=== PATIENT | male | born 1945 | race Caucasian/White ===

== ENCOUNTER 2016-09-13 20:16 | Inpatient (IN) | payer MEDICARE ==
[~2016-09-13] VITALS: Ht 177.8 cm; Wt 94.5 kg
[~2016-09-13 20:16] MED LIST: ACET-1757 PO; ALBU8.5H3 INH; AMLO5TAB2 PO; ASPI-515 PO; ASPI-650 PO; ASPI1CPM9 PO; BACL-19 PO; DIVA500T2 PO; DOXY100T PO; ENAL10TA PO; ENAL2.5T PO; ENAL20TA PO; FAMO20TA7 PO; FINA5TAB4 PO; GABA100C8 PO; GUAI600T53 PO; INHA1SPA INH; INSU100C SQ-INSULIN; INSU100C5 SQ-INSULIN; INSU100I28 SQ-INSULIN; INSU100V8 SQ; INSU300I SQ; LEVO500T33 PO; LIDOCAINE CREAM; LINA5TAB PO; LISI-170 PO; MAG355OR14 PO; METF10002 PO; OMEP-110 PO; OMEP10CA2 PO; PANT40TA3 PO; PANT40TA5 PO; PIOG15TA2 PO; PIOG15TA9 PO; PRED10TA14 PO; PRED20TA PO; SILD100T PO; SIMV20TA3 PO; SIMV40TA3 PO; SUCR1ORA11 PO; SUCR1TAB26 PO; SUMA25TA3 PO; TAMS0.4C2 PO; TRAJEO; TRAM50TA2 PO; [UNRECOGNIZED DRUG - CODE] SL
[2016-09-13 20:50] LABS: HEMOGLOBIN 16.1 g/dL (13.7-18.0)
[2016-09-13 20:59] LABS: ACETAMINOPHEN < 2 mcg/mL (10-30); BLOOD UREA NITROGEN 21 mg/dL (7-18)
[2016-09-13 21:06] LABS: DAU SCREEN DISCLAIMER
[2016-09-13] MEDS ORDERED: NITROGLYCERIN SINGLE TAB 0.4 MG SL ONE (23:06)
[2016-09-13] MEDS ORDERED: SODIUM CHLORIDE 0.9% 1,000 ML IV SCH (23:17)
[2016-09-13] MEDS ORDERED: ASPIRIN 81 MG TABLET CHEW PO SCH (23:20)
[2016-09-13] MEDS: NITROGLYCERIN 0.4 MG BOTTLE (25 TABS) SL PRN ×2 (23:20→23:25)
[2016-09-13] MEDS ORDERED: ASPIRIN 81 MG TABLET CHEW ONE (23:21)
[2016-09-13] MEDS ORDERED: ACETAMINOPHEN 325 MG TABLET PO PRN (23:30)
[2016-09-13] MEDS: INSULIN DETEMIR 100 UNITS/ML, PEN SQ-INSULIN SCH (23:30)
[2016-09-13] MEDS ORDERED: LABETALOL 5MG/ML, 20ML IV PRN (23:30)
[2016-09-13] MEDS ORDERED: POLYETHYLENE GLYCOL 17 GM PACKET PO PRN (23:30)
[2016-09-13] MEDS ORDERED: SUMATRIPTAN 25 MG TABLET PO PRN (23:30)
[2016-09-13] MEDS ORDERED: ONDANSETRON 2MG/ML, 2ML IVP PRN (23:30)
[2016-09-13] MEDS ORDERED: BISACODYL 10 MG SUPP PR PRN (23:30)
[2016-09-13] MEDS ORDERED: DOCUSATE 100 MG CAPSULE PO PRN (23:30)
[2016-09-13] MEDS ORDERED: TEMAZEPAM 15 MG CAPSULE PO PRN (23:30)
[2016-09-13] MEDS ORDERED: MORPHINE SULFATE 4 MG/ML, 1ML IVPush PRN (23:30)
[2016-09-13 23:51] LABS: IS PT STATUS REG ER OR PRE ER? YES
[2016-09-14] VITALS (8 sets, daily range): BP systolic 91–150; BP diastolic 55–80
[2016-09-14] MEDS ORDERED: ASPIRIN 81 MG TABLET CHEW PO ONE (00:58)
[2016-09-14] MEDS: ENOXAPARIN 40 MG/0.4 ML SQ SCH ×2 (01:17→22:19)
[2016-09-14 06:02] LABS: HEMOGLOBIN 14.6 g/dL (13.7-18.0)
[2016-09-14 06:38] LABS: BLOOD UREA NITROGEN 21 mg/dL (7-18)
[2016-09-14 06:39] LABS: IS PT STATUS REG ER OR PRE ER? NO
[2016-09-14] MEDS: INSULIN REGULAR 100 UNITS/ML, 3ML VIAL SQ-INSULIN SCH ×4 (07:17→22:09)
[2016-09-14] MEDS: ASPIRIN 325 MG TABLET EC PO SCH (09:20)
[2016-09-14] MEDS: TAMSULOSIN 0.4 MG CAP.ER.24H PO SCH (09:21)
[2016-09-14] MEDS: BACLOFEN 10 MG TABLET PO SCH (09:21)
[2016-09-14] MEDS: OMEPRAZOLE 20 MG CAPSULE.DR PO SCH ×2 (09:21→22:05)
[2016-09-14] MEDS: FINASTERIDE 5 MG TABLET PO SCH (09:21)
[2016-09-14] MEDS: DIVALPROEX 500 MG TABLET.DR PO SCH ×2 (09:22→22:14)
[2016-09-14] MEDS: PIOGLITAZONE 15 MG TABLET PO SCH (09:22)
[2016-09-14] MEDS: ENALAPRIL 20MG TABLET PO SCH (09:22)
[2016-09-14] MEDS: INSULIN DETEMIR 100 UNITS/ML, PEN SQ-INSULIN SCH ×2 (10:19→22:07)
[2016-09-14] MEDS: ISOSORBIDE MONONITRATE ER 30 MG TABLET PO SCH (10:20)
[2016-09-14] MEDS: ARIPIPRAZOLE 2 MG TABLET PO SCH (10:20)
[2016-09-14 11:22] LABS: IS PT STATUS REG ER OR PRE ER? YES
[2016-09-14] MEDS ORDERED: DEXTROSE 4 GM TAB.CHEW PO PRN (19:30)
[2016-09-14] MEDS ORDERED: DEXTROSE 50%, 50ML SYRINGE IVPush PRN (19:30)
[2016-09-14] MEDS ORDERED: GLUCAGON 1 MG IM PRN (19:30)
[2016-09-14] MEDS ORDERED: SODIUM CHLORIDE FLUSH 10ML SYR IVF SCH (21:00)
[2016-09-14] MEDS ORDERED: SIMVASTATIN 20 MG TABLET PO SCH (21:00)
[2016-09-15 07:22] VITALS: BP 97/59
[2016-09-15] MEDS: INSULIN REGULAR 100 UNITS/ML, 3ML VIAL SQ-INSULIN SCH ×2 (07:30→11:00)
[2016-09-15] MEDS: FINASTERIDE 5 MG TABLET PO SCH (08:00)
[2016-09-15] MEDS: PIOGLITAZONE 15 MG TABLET PO SCH (08:00)
[2016-09-15] MEDS: INSULIN DETEMIR 100 UNITS/ML, PEN SQ-INSULIN SCH (09:27)
[2016-09-15] MEDS: OMEPRAZOLE 20 MG CAPSULE.DR PO SCH (09:28)
[2016-09-15] MEDS: ASPIRIN 325 MG TABLET EC PO SCH (09:28)
[2016-09-15] MEDS: ISOSORBIDE MONONITRATE ER 30 MG TABLET PO SCH (09:28)
[2016-09-15] MEDS: TAMSULOSIN 0.4 MG CAP.ER.24H PO SCH (09:28)
[2016-09-15] MEDS: ARIPIPRAZOLE 2 MG TABLET PO SCH (09:28)
[2016-09-15] MEDS: BACLOFEN 10 MG TABLET PO SCH (09:29)
[2016-09-15] MEDS: ENALAPRIL 20MG TABLET PO SCH (09:29)
[2016-09-15] MEDS: DIVALPROEX 500 MG TABLET.DR PO SCH (09:29)
[2016-09-15] MEDS ORDERED: AZITHROMYCIN 500 MG TABLET PO SCH (13:00)
[2016-09-15] MEDS ORDERED: GUAIFENESIN 200 MG TABLET PO SCH (13:00)
[2016-09-16] MEDS ORDERED: ENALAPRIL 10 MG TABLET PO SCH (09:00)
== END 2016-09-15 15:45 | DRG 292 ==
LOC: ED 22:34 → EDIP 22:35 → SUATTDRO 22:54 → ED 22:54 → OBSVTOIN 23:17 → 5SO 09-14 00:51 → 3E 09-14 12:09
DX: I13.0 Hypertensive heart and chronic kidney disease with heart failure and stage 1 through stage 4 chronic kidney disease, or unspecified chronic kidney disease (principal); R45.851 Suicidal ideations; I50.42 Chronic combined systolic (congestive) and diastolic (congestive) heart failure; N17.9 Acute kidney failure, unspecified; R07.89 Other chest pain; Z79.4 Long term (current) use of insulin; N18.3 Chronic kidney disease, stage 3 (moderate); E11.22 Type 2 diabetes mellitus with diabetic chronic kidney disease; E78.5 Hyperlipidemia, unspecified; F43.10 Post-traumatic stress disorder, unspecified; I25.10 Atherosclerotic heart disease of native coronary artery without angina pectoris; J44.9 Chronic obstructive pulmonary disease, unspecified; K22.4 Dyskinesia of esophagus; K22.70 Barrett's esophagus without dysplasia; F41.9 Anxiety disorder, unspecified; N40.0 Benign prostatic hyperplasia without lower urinary tract symptoms; I48.0 Paroxysmal atrial fibrillation; G43.909 Migraine, unspecified, not intractable, without status migrainosus; G89.29 Other chronic pain; M54.9 Dorsalgia, unspecified; Z90.49 Acquired absence of other specified parts of digestive tract; Z82.0 Family history of epilepsy and other diseases of the nervous system; Z86.711 Personal history of pulmonary embolism; Z86.73 Personal history of transient ischemic attack (TIA), and cerebral infarction without residual deficits; Z83.3 Family history of diabetes mellitus; Z80.1 Family history of malignant neoplasm of trachea, bronchus and lung; E11.40 Type 2 diabetes mellitus with diabetic neuropathy, unspecified
CPT/HCPCS: 36415; 71010; 80048; 80307; 80329; 82040; 82962; 84484; 85025; 93005; 99285; J1650; J1815; G0378; G0480; J7030

== ENCOUNTER 2016-10-23 21:22 | Emergency (ER) | payer MEDICARE ==
[2016-10-23] MEDS ORDERED: SODIUM CHLORIDE FLUSH 10ML SYR IVF ONE (22:00)
[2016-10-23 22:17] LABS: BLOOD UREA NITROGEN 18 mg/dL (7-18)
[2016-10-23 22:23] LABS: IS PT STATUS REG ER OR PRE ER? YES
[2016-10-23 22:59] VITALS: BP 126/66
== END 2016-10-23 23:17 | disposition home or self-care (01) ==
LOC: ED 23:13
DX: E11.65 Type 2 diabetes mellitus with hyperglycemia (principal); J44.9 Chronic obstructive pulmonary disease, unspecified; K21.9 Gastro-esophageal reflux disease without esophagitis; E78.5 Hyperlipidemia, unspecified; I25.10 Atherosclerotic heart disease of native coronary artery without angina pectoris; I11.0 Hypertensive heart disease with heart failure; I50.9 Heart failure, unspecified; Z90.49 Acquired absence of other specified parts of digestive tract; Z88.6 Allergy status to analgesic agent
CPT/HCPCS: 36415; 80048; 82040; 82962; 84484; 85025; 93005; 99285

== ENCOUNTER 2016-11-04 12:58 | Inpatient (IN) | payer MEDICARE ==
[~2016-11-04] VITALS: Ht 152.4 cm; Wt 103.6 kg
[2016-11-04] MEDS ORDERED: ALBU8.5H3 IH (13:21)
[2016-11-04] MEDS ORDERED: HYDROcodone/APAP 5/325 TABLET ONE (13:29)
[2016-11-04] MEDS ORDERED: SODIUM CHLORIDE 0.9% 1,000ML IVBOLUS ONE (13:30)
[2016-11-04] MEDS ORDERED: HYDROcodone/APAP 5/325 TABLET PO ONE (13:30)
[2016-11-04 13:45] LABS: PH, VENOUS 7.427 pH (7.320-7.420)
[2016-11-04 13:58] LABS: ASPARTATE AMINO TRANSFERASE 21 U/L (15-37); BLOOD UREA NITROGEN 18 mg/dL (7-18)
[2016-11-04 16:52] VITALS: BP 138/72
[2016-11-04] MEDS ORDERED: DEXTROSE 4 GM TAB.CHEW PO PRN (17:30)
[2016-11-04] MEDS ORDERED: NITROGLYCERIN 0.4 MG/SPRAY SL PRN (17:30)
[2016-11-04] MEDS ORDERED: morphine SULFATE 10 MG/ML, 1ML IVPush PRN (17:30)
[2016-11-04] MEDS ORDERED: ONDANSETRON 2MG/ML, 2ML IVPush PRN (17:30)
[2016-11-04] MEDS ORDERED: GLUCAGON 1 MG IM PRN (17:30)
[2016-11-04] MEDS ORDERED: DEXTROSE 50%, 50ML SYRINGE IVPush PRN (17:30)
[2016-11-04] MEDS ORDERED: NITROGLYCERIN 0.4 MG BOTTLE (25 TABS) SL PRN (17:30)
[2016-11-04] MEDS ORDERED: ENOXAPARIN 40 MG/0.4 ML SQ SCH (17:30)
[2016-11-04 19:19] VITALS: BP 126/70
[2016-11-04] MEDS: SODIUM CHLORIDE FLUSH 10ML SYR IVF SCH (20:57)
[2016-11-04] MEDS: DIVALPROEX 500 MG TABLET.DR PO SCH (20:57)
[2016-11-04] MEDS ORDERED: SIMVASTATIN 20 MG TABLET PO SCH (21:00)
[2016-11-04] MEDS: INSULIN DETEMIR 100 UNITS/ML, PEN SQ-INSULIN SCH (21:04)
[2016-11-04 21:08] LABS: IS PT STATUS REG ER OR PRE ER? NO
[2016-11-04] MEDS: INSULIN ASPART 100 UNITS/ML, PEN SQ-INSULIN SCH (21:11)
[2016-11-04] MEDS ORDERED: ALBUTEROL/IPRATROPIUM 2.5MG/0.5MG, 3 ML NPPB PRN (21:30)
[2016-11-05 02:07] VITALS: BP 149/82
[2016-11-05] MEDS: INSULIN DETEMIR 100 UNITS/ML, PEN SQ-INSULIN SCH (05:10)
[2016-11-05 06:47] LABS: BLOOD UREA NITROGEN 14 mg/dL (7-18)
[2016-11-05 06:51] LABS: ASPARTATE AMINO TRANSFERASE 13 U/L (15-37)
[2016-11-05 06:57] LABS: IS PT STATUS REG ER OR PRE ER? NO
[2016-11-05] MEDS: INSULIN ASPART 100 UNITS/ML, PEN SQ-INSULIN SCH ×2 (07:00→13:06)
[2016-11-05 07:53] VITALS: BP 155/94
[2016-11-05] MEDS ORDERED: PIOGLITAZONE 15 MG TABLET PO SCH (09:00)
[2016-11-05] MEDS ORDERED: FINASTERIDE 5 MG TABLET PO SCH (09:00)
[2016-11-05] MEDS ORDERED: ENALAPRIL 10 MG TABLET PO SCH (09:00)
[2016-11-05] MEDS ORDERED: TAMSULOSIN 0.4 MG CAP.ER.24H PO SCH (09:00)
[2016-11-05] MEDS ORDERED: ASPIRIN 325 MG TABLET EC PO SCH (09:00)
[2016-11-05] MEDS ORDERED: REGADENOSON 0.4 MG/5 ML SYRINGE ONE (09:01)
[2016-11-05] MEDS: DIVALPROEX 500 MG TABLET.DR PO SCH (09:02)
[2016-11-05] MEDS: SODIUM CHLORIDE FLUSH 10ML SYR IVF SCH (09:04)
[2016-11-05 14:11] LABS: IS PT STATUS REG ER OR PRE ER? NO
[2016-11-05 14:47] VITALS: BP 120/71
== END 2016-11-05 18:49 | disposition home or self-care (01) | DRG 381 ==
LOC: ED 14:01 → EDIP 14:53 → SUATTDRO 15:47 → 5SO 16:19
PROVIDERS: ADMIT Internal Medicine; ATTEND Internal Medicine
DX: K22.70 Barrett's esophagus without dysplasia (principal); G45.9 Transient cerebral ischemic attack, unspecified; I13.0 Hypertensive heart and chronic kidney disease with heart failure and stage 1 through stage 4 chronic kidney disease, or unspecified chronic kidney disease; I50.42 Chronic combined systolic (congestive) and diastolic (congestive) heart failure; E11.21 Type 2 diabetes mellitus with diabetic nephropathy; E11.22 Type 2 diabetes mellitus with diabetic chronic kidney disease; E78.5 Hyperlipidemia, unspecified; F32.9 Major depressive disorder, single episode, unspecified; F43.10 Post-traumatic stress disorder, unspecified; G43.909 Migraine, unspecified, not intractable, without status migrainosus; I25.10 Atherosclerotic heart disease of native coronary artery without angina pectoris; J44.9 Chronic obstructive pulmonary disease, unspecified; N18.3 Chronic kidney disease, stage 3 (moderate); N40.0 Benign prostatic hyperplasia without lower urinary tract symptoms; Z80.1 Family history of malignant neoplasm of trachea, bronchus and lung; Z82.0 Family history of epilepsy and other diseases of the nervous system; Z83.3 Family history of diabetes mellitus; Z85.828 Personal history of other malignant neoplasm of skin; Z86.711 Personal history of pulmonary embolism; Z87.891 Personal history of nicotine dependence; Z88.8 Allergy status to other drugs, medicaments and biological substances; E11.40 Type 2 diabetes mellitus with diabetic neuropathy, unspecified; I48.0 Paroxysmal atrial fibrillation
CPT/HCPCS: 36415; 71010; 78452; 80053; 80061; 81003; 82010; 82803; 82962; 83036; 83735; 84100; 84443; 84484; 85025; 93005; 93017; 96360; J1650; J1815; J2785; A9502; C9898; J2270; J7030

== ENCOUNTER 2016-11-19 12:35 | Inpatient (IN) | payer MEDICARE ==
[~2016-11-19] VITALS: Ht 177.8 cm; Wt 96.8 kg
[~2016-11-19 12:35] MED LIST changes: +ALBU8.5H3 IH
[2016-11-19] MEDS ORDERED: SODIUM CHLORIDE FLUSH 10ML SYR IVF ONE (13:30)
[2016-11-19] MEDS ORDERED: SODIUM CHLORIDE 0.9% 1,000 ML IV ONE (13:30)
[2016-11-19] MEDS ORDERED: ONDANSETRON 2MG/ML, 2ML IVPush ONE (13:30)
[2016-11-19] MEDS ORDERED: HYDROmorphone 1 MG/ML, 1ML ONE ×2 (13:40→16:33)
[2016-11-19] MEDS ORDERED: ONDANSETRON 2MG/ML, 2ML ONE (13:40)
[2016-11-19] MEDS: HYDROmorphone 1 MG/ML, 1ML IVPush PRN ×2 (13:46→16:38)
[2016-11-19 14:06] LABS: ASPARTATE AMINO TRANSFERASE 22 U/L (15-37); BLOOD UREA NITROGEN 19 mg/dL (7-18)
[2016-11-19 14:25] LABS: IS PT STATUS REG ER OR PRE ER? YES
[2016-11-19] MEDS ORDERED: SODIUM CHLORIDE FLUSH 10ML SYR IVF PRN (16:00)
[2016-11-19] MEDS ORDERED: ASPIRIN 81 MG TABLET CHEW PO ONE (16:00)
[2016-11-19] MEDS ORDERED: PHARMACY MAY ADJ FOR RENAL FX MC PRN (16:30)
[2016-11-19] MEDS ORDERED: ONDANSETRON ODT 4 MG PO PRN (16:30)
[2016-11-19] MEDS ORDERED: ONDANSETRON 2MG/ML, 2ML IVPush PRN (16:30)
[2016-11-19] MEDS ORDERED: MORPHINE SULFATE 4 MG/ML, 1ML IVPush PRN (16:30)
[2016-11-19] MEDS ORDERED: ASPIRIN 81 MG TABLET CHEW ONE (16:34)
[2016-11-19] MEDS: INSULIN ASPART 100 UNITS/ML, PEN SQ-INSULIN SCH ×2 (17:30→21:57)
[2016-11-19 17:36] VITALS: BP 125/83
[2016-11-19] MEDS: SODIUM CHLORIDE 0.9% 1,000 ML IV SCH (18:03)
[2016-11-19] MEDS: ENOXAPARIN 40 MG/0.4 ML SQ SCH (18:13)
[2016-11-19 20:32] VITALS: BP 137/75
[2016-11-19] MEDS: INSULIN GLARGINE HUM REC ANLOG 35 UNIT SQ SCH (21:00)
[2016-11-19] MEDS: OMEPRAZOLE 20 MG CAPSULE.DR PO SCH (21:17)
[2016-11-19] MEDS: DIVALPROEX 500 MG TABLET.DR PO SCH (21:17)
[2016-11-19] MEDS: SIMVASTATIN 20 MG TABLET PO SCH (21:17)
[2016-11-20 02:58] VITALS: BP 106/67
[2016-11-20 06:00] LABS: ASPARTATE AMINO TRANSFERASE 18 U/L (15-37); BLOOD UREA NITROGEN 20 mg/dL (7-18)
[2016-11-20] MEDS: INSULIN ASPART 100 UNITS/ML, PEN SQ-INSULIN SCH ×4 (07:00→20:33)
[2016-11-20 08:26] VITALS: BP 110/73
[2016-11-20 08:30] VITALS: BP 139/82
[2016-11-20] MEDS: FINASTERIDE 5 MG TABLET PO SCH (08:36)
[2016-11-20] MEDS: TAMSULOSIN 0.4 MG CAP.ER.24H PO SCH (08:36)
[2016-11-20] MEDS: OMEPRAZOLE 20 MG CAPSULE.DR PO SCH ×2 (08:36→20:33)
[2016-11-20] MEDS: DIVALPROEX 500 MG TABLET.DR PO SCH ×2 (08:36→20:33)
[2016-11-20] MEDS: ASPIRIN 325 MG TABLET EC PO SCH (08:36)
[2016-11-20] MEDS: BACLOFEN 10 MG TABLET PO SCH (08:36)
[2016-11-20] MEDS: SODIUM CHLORIDE 0.9% 1,000 ML IV SCH (12:15)
[2016-11-20 12:48] VITALS: BP 104/66
[2016-11-20] MEDS: ENOXAPARIN 40 MG/0.4 ML SQ SCH (16:00)
[2016-11-20] MEDS: SIMVASTATIN 20 MG TABLET PO SCH (20:33)
[2016-11-20] MEDS: INSULIN GLARGINE HUM REC ANLOG 35 UNIT SQ SCH (20:33)
[2016-11-20 20:58] VITALS: BP 123/71
[2016-11-21] MEDS: SODIUM CHLORIDE 0.9% 1,000 ML IV SCH ×2 (00:19→14:54)
[2016-11-21 02:55] VITALS: BP 115/60
[2016-11-21 07:06] VITALS: BP 128/71
[2016-11-21 08:43] LABS: BLOOD UREA NITROGEN 16 mg/dL (7-18)
[2016-11-21] MEDS: INSULIN ASPART 100 UNITS/ML, PEN SQ-INSULIN SCH ×4 (08:56→20:29)
[2016-11-21] MEDS: BACLOFEN 10 MG TABLET PO SCH (08:57)
[2016-11-21] MEDS: TAMSULOSIN 0.4 MG CAP.ER.24H PO SCH (08:57)
[2016-11-21] MEDS: OMEPRAZOLE 20 MG CAPSULE.DR PO SCH ×2 (08:57→20:28)
[2016-11-21] MEDS: ASPIRIN 325 MG TABLET EC PO SCH (08:57)
[2016-11-21] MEDS: DIVALPROEX 500 MG TABLET.DR PO SCH ×2 (08:57→20:28)
[2016-11-21] MEDS: FINASTERIDE 5 MG TABLET PO SCH (08:57)
[2016-11-21 09:02] VITALS: BP_SYST 146; BP_SYST 149; BP_SYST 153; BP_DIAS 74; BP_DIAS 75; BP_DIAS 83
[2016-11-21 12:16] VITALS: BP 137/71
[2016-11-21] MEDS ORDERED: GADOBUTROL 10 MMOL/10 ML VIAL ONE (15:09)
[2016-11-21] MEDS: ENOXAPARIN 40 MG/0.4 ML SQ SCH (16:50)
[2016-11-21 18:38] VITALS: BP 132/72
[2016-11-21] MEDS: SIMVASTATIN 20 MG TABLET PO SCH (20:28)
[2016-11-21] MEDS: INSULIN GLARGINE HUM REC ANLOG 35 UNIT SQ SCH (20:28)
[2016-11-22 01:20] VITALS: BP 123/62
[2016-11-22] MEDS: SODIUM CHLORIDE 0.9% 1,000 ML IV SCH (03:07)
[2016-11-22] MEDS: INSULIN ASPART 100 UNITS/ML, PEN SQ-INSULIN SCH ×2 (07:00→11:14)
[2016-11-22 07:57] VITALS: BP 130/80
[2016-11-22] MEDS: DIVALPROEX 500 MG TABLET.DR PO SCH (08:19)
[2016-11-22] MEDS: ASPIRIN 325 MG TABLET EC PO SCH (08:19)
[2016-11-22] MEDS: FINASTERIDE 5 MG TABLET PO SCH (08:19)
[2016-11-22] MEDS: BACLOFEN 10 MG TABLET PO SCH (08:19)
[2016-11-22] MEDS: OMEPRAZOLE 20 MG CAPSULE.DR PO SCH (08:19)
[2016-11-22] MEDS: TAMSULOSIN 0.4 MG CAP.ER.24H PO SCH (08:19)
[2016-11-22] MEDS ORDERED: FINASTERIDE 5 MG TABLET PO SCH (21:00)
[2016-11-22] MEDS ORDERED: TAMSULOSIN 0.4 MG CAP.ER.24H PO SCH (21:00)
== END 2016-11-22 13:12 | disposition home or self-care (01) | DRG 69 ==
LOC: ED 15:49 → EDIP 16:42 → 4WST 17:03 → DCLOUNGE 11-22 12:43
DX: G45.9 Transient cerebral ischemic attack, unspecified (principal); E44.1 Mild protein-calorie malnutrition; I50.42 Chronic combined systolic (congestive) and diastolic (congestive) heart failure; I13.0 Hypertensive heart and chronic kidney disease with heart failure and stage 1 through stage 4 chronic kidney disease, or unspecified chronic kidney disease; H53.149 Visual discomfort, unspecified; N40.0 Benign prostatic hyperplasia without lower urinary tract symptoms; F32.9 Major depressive disorder, single episode, unspecified; E11.22 Type 2 diabetes mellitus with diabetic chronic kidney disease; E11.40 Type 2 diabetes mellitus with diabetic neuropathy, unspecified; E78.5 Hyperlipidemia, unspecified; F43.10 Post-traumatic stress disorder, unspecified; G43.909 Migraine, unspecified, not intractable, without status migrainosus; N18.3 Chronic kidney disease, stage 3 (moderate); I25.10 Atherosclerotic heart disease of native coronary artery without angina pectoris; R74.8 Abnormal levels of other serum enzymes; J32.9 Chronic sinusitis, unspecified; J44.9 Chronic obstructive pulmonary disease, unspecified; K22.70 Barrett's esophagus without dysplasia; Z79.4 Long term (current) use of insulin; Z86.711 Personal history of pulmonary embolism; Z87.891 Personal history of nicotine dependence; Z91.5 Personal history of self-harm; Z90.49 Acquired absence of other specified parts of digestive tract; Z79.82 Long term (current) use of aspirin; Z79.899 Other long term (current) drug therapy; Z68.30 Body mass index [BMI] 30.0-30.9, adult; Z88.8 Allergy status to other drugs, medicaments and biological substances
CPT/HCPCS: 36415; 70450; 70544; 70549; 70553; 71010; 80048; 80053; 80061; 82533; 82962; 84443; 84484; 85025; 93005; 93306; 96361; 96374; 96375; 96376; A9585; J1170; J1650; J1815; J2405; J7030

== ENCOUNTER 2017-01-02 09:52 | Inpatient (IN) | payer MEDICARE, MEDICAID ==
[~2017-01-02] VITALS: Ht 177.8 cm; Wt 107.0 kg
[~2017-01-02 09:52] MED LIST changes: +GABA-826 PO; -GABA100C8 PO
[2017-01-02] MEDS ORDERED: SODIUM CHLORIDE FLUSH 10ML SYR IVF ONE (10:30)
[2017-01-02 10:42] LABS: ASPARTATE AMINO TRANSFERASE 20 U/L (15-37); BLOOD UREA NITROGEN 14 mg/dL (7-18)
[2017-01-02 10:51] LABS: IS PT STATUS REG ER OR PRE ER? YES
[2017-01-02] MEDS ORDERED: ACETAMINOPHEN 325 MG TABLET ONE (10:52)
[2017-01-02] MEDS ORDERED: ACETAMINOPHEN 325 MG TABLET PO ONE (11:00)
[2017-01-02] MEDS ORDERED: CLOP75TA PO (11:09)
[2017-01-02] MEDS ORDERED: LINA5TAB PO (11:09)
[2017-01-02] MEDS ORDERED: PANT40TA5 PO (11:09)
[2017-01-02] MEDS ORDERED: ENAL20TA PO (11:09)
[2017-01-02] MEDS ORDERED: SODIUM CHLORIDE FLUSH 10ML SYR IVF PRN (11:30)
[2017-01-02 12:41] VITALS: BP 146/98
[2017-01-02] MEDS ORDERED: DEXTROSE 50%, 50ML SYRINGE IVPush PRN (15:30)
[2017-01-02] MEDS ORDERED: ENALAPRILAT 1.25 MG/ML, 2ML IVPush PRN (15:30)
[2017-01-02] MEDS ORDERED: DEXTROSE 4 GM TAB.CHEW PO PRN (15:30)
[2017-01-02] MEDS ORDERED: GLUCAGON 1 MG IM PRN (15:30)
[2017-01-02] MEDS ORDERED: LABETALOL 5MG/ML, 20ML IVPush PRN (15:30)
[2017-01-02] MEDS ORDERED: ONDANSETRON 2MG/ML, 2ML IVPush PRN (15:30)
[2017-01-02] MEDS ORDERED: TEMAZEPAM 15 MG CAPSULE PO PRN (15:30)
[2017-01-02] MEDS ORDERED: ACETAMINOPHEN 325 MG TABLET PO PRN (15:30)
[2017-01-02] MEDS: INSULIN ASPART 100 UNITS/ML, PEN SQ-INSULIN SCH ×2 (16:00→21:00)
[2017-01-02] MEDS: HEPARIN 5,000 UNITS/ML, 1ML SQ SCH (17:45)
[2017-01-02] MEDS: INSULIN GLARGINE HUM REC ANLOG 35 UNIT SQ SCH (21:00)
[2017-01-02] MEDS: SODIUM CHLORIDE FLUSH 10ML SYR IVF SCH (21:16)
[2017-01-02] MEDS: SIMVASTATIN 20 MG TABLET PO SCH (21:16)
[2017-01-02] MEDS: DIVALPROEX 500 MG TABLET.DR PO SCH (21:16)
[2017-01-02 21:17] VITALS: BP 141/80
[2017-01-02] MEDS: SUMATRIPTAN 25 MG TABLET PO PRN (23:30)
[2017-01-03] MEDS: HEPARIN 5,000 UNITS/ML, 1ML SQ SCH ×3 (01:45→17:54)
[2017-01-03 02:20] VITALS: BP 129/79
[2017-01-03 06:35] VITALS: BP 149/79
[2017-01-03] MEDS: INSULIN ASPART 100 UNITS/ML, PEN SQ-INSULIN SCH ×4 (07:00→17:50)
[2017-01-03] MEDS: PANTOPROZOLE 40MG TABLET PO SCH (08:21)
[2017-01-03] MEDS: CLOPIDOGREL 75 MG TABLET PO SCH (08:21)
[2017-01-03] MEDS: TAMSULOSIN 0.4 MG CAP.ER.24H PO SCH (08:21)
[2017-01-03] MEDS: BACLOFEN 10 MG TABLET PO SCH (08:21)
[2017-01-03] MEDS: DIVALPROEX 500 MG TABLET.DR PO SCH ×2 (08:21→21:01)
[2017-01-03] MEDS: SODIUM CHLORIDE FLUSH 10ML SYR IVF SCH ×2 (08:21→21:01)
[2017-01-03] MEDS: ENALAPRIL 20MG TABLET PO SCH (08:22)
[2017-01-03] MEDS: FLUTICASONE NASAL SPRAY 16GM NAS SCH ×2 (10:30→21:00)
[2017-01-03] MEDS: SODIUM CHLORIDE NASAL SPRAY 45ML BOTTLE NAS SCH ×2 (10:30→21:00)
[2017-01-03 12:08] VITALS: BP 131/79
[2017-01-03] MEDS: GUAIFENESIN 200 MG TABLET PO SCH ×3 (13:32→21:01)
[2017-01-03 19:48] VITALS: BP 116/68
[2017-01-03] MEDS: INSULIN GLARGINE HUM REC ANLOG 35 UNIT SQ SCH (21:00)
[2017-01-03] MEDS: SIMVASTATIN 20 MG TABLET PO SCH (21:00)
[2017-01-04 01:16] VITALS: BP 142/75
[2017-01-04] MEDS: HEPARIN 5,000 UNITS/ML, 1ML SQ SCH ×3 (01:22→16:00)
[2017-01-04] MEDS: GUAIFENESIN 200 MG TABLET PO SCH ×3 (05:42→16:34)
[2017-01-04] MEDS: SUMATRIPTAN 25 MG TABLET PO PRN (05:45)
[2017-01-04 06:46] VITALS: BP 128/76
[2017-01-04] MEDS: INSULIN ASPART 100 UNITS/ML, PEN SQ-INSULIN SCH ×3 (07:00→16:00)
[2017-01-04] MEDS: SODIUM CHLORIDE NASAL SPRAY 45ML BOTTLE NAS SCH (08:54)
[2017-01-04] MEDS: FLUTICASONE NASAL SPRAY 16GM NAS SCH (08:54)
[2017-01-04] MEDS: BACLOFEN 10 MG TABLET PO SCH (08:55)
[2017-01-04] MEDS: PANTOPROZOLE 40MG TABLET PO SCH (08:55)
[2017-01-04] MEDS: DIVALPROEX 500 MG TABLET.DR PO SCH (08:55)
[2017-01-04] MEDS: ENALAPRIL 20MG TABLET PO SCH (08:55)
[2017-01-04] MEDS: CLOPIDOGREL 75 MG TABLET PO SCH (08:55)
[2017-01-04] MEDS: TAMSULOSIN 0.4 MG CAP.ER.24H PO SCH (08:55)
[2017-01-04] MEDS: SODIUM CHLORIDE FLUSH 10ML SYR IVF SCH (08:56)
[2017-01-04 13:28] VITALS: BP 128/77
[2017-01-04] MEDS ORDERED: FLUT16SP NAS (13:54)
[2017-01-04] MEDS ORDERED: SODI44SP NAS (13:54)
== END 2017-01-04 17:15 | disposition home health service (06) | DRG 103 ==
LOC: ED 10:33 → EDIP 11:24 → INTOOBSV 11:24 → 4EST 12:25 → OBSVTOIN 01-03 10:38
PROVIDERS: ADMIT Hospitalist; ATTEND Hospitalist
DX: G43.109 Migraine with aura, not intractable, without status migrainosus (principal); I13.0 Hypertensive heart and chronic kidney disease with heart failure and stage 1 through stage 4 chronic kidney disease, or unspecified chronic kidney disease; J98.11 Atelectasis; R47.01 Aphasia; G81.94 Hemiplegia, unspecified affecting left nondominant side; E11.22 Type 2 diabetes mellitus with diabetic chronic kidney disease; E78.5 Hyperlipidemia, unspecified; F41.9 Anxiety disorder, unspecified; I25.10 Atherosclerotic heart disease of native coronary artery without angina pectoris; I50.9 Heart failure, unspecified; J44.9 Chronic obstructive pulmonary disease, unspecified; K21.9 Gastro-esophageal reflux disease without esophagitis; N18.3 Chronic kidney disease, stage 3 (moderate); N40.0 Benign prostatic hyperplasia without lower urinary tract symptoms; F32.9 Major depressive disorder, single episode, unspecified; E11.40 Type 2 diabetes mellitus with diabetic neuropathy, unspecified; R47.1 Dysarthria and anarthria; Z79.4 Long term (current) use of insulin; Z86.711 Personal history of pulmonary embolism; Z86.73 Personal history of transient ischemic attack (TIA), and cerebral infarction without residual deficits; Z92.82 Status post administration of tPA (rtPA) in a different facility within the last 24 hours prior to admission to current facility
CPT/HCPCS: 36415; 70450; 70551; 71010; 71020; 80053; 81003; 82962; 83735; 84100; 84484; 85025; 85610; 85730; 93005; 99285; G0378; J1644; J1815

== ENCOUNTER 2017-03-11 21:23 | Emergency (ER) | payer MEDICARE, MEDICAID ==
[~2017-03-11] VITALS: Ht 175.3 cm; Wt 118.5 kg
[~2017-03-11 21:23] MED LIST changes: -ALBU8.5H3 IH; -ALBU8.5H3 INH; +ALBU8.5H8 IH; +ALBU8.5H8 INH; +ASPI325T17 PO; +CLOP75TA PO; +DABI75CA3 PO; +FLUT16SP NAS; +GABA300C10 PO; -GUAI600T53 PO; +GUAI600T80 PO; +HYDR-3240 PO; -LEVO500T33 PO; +LEVO500T47 PO; +METH4TAB2 PO; +MIRT15TA6 PO; +PIOG15TA22 PO; -PIOG15TA9 PO; +SODI44SP NAS; -SUCR1TAB26 PO; +SUCR1TAB33 PO
[2017-03-11] MEDS ORDERED: ALBUTEROL/IPRATROPIUM 2.5MG/0.5MG, 3 ML NPPB ONE (22:00)
[2017-03-11] MEDS ORDERED: ALBUTEROL/IPRATROPIUM 2.5MG/0.5MG, 3 ML ONE (22:10)
[2017-03-11 22:21] LABS: BLOOD UREA NITROGEN 13 mg/dL (7-18)
[2017-03-11 22:40] LABS: HEMATOCRIT 45.9 % (39.2-51.8); HEMOGLOBIN 15.5 g/dL (13.7-18.0); WHITE BLOOD COUNT 6.1 x10^3/uL (3.4-10)
[2017-03-11] MEDS ORDERED: DEXAMETHASONE 4 MG TABLET ONE (23:28)
[2017-03-11] MEDS ORDERED: DEXAMETHASONE 4 MG/ML, 1ML IVPush ONE (23:30)
[2017-03-11] MEDS ORDERED: DEXAMETHASONE 4 MG/ML, 5ML ONE (23:33)
[2017-03-12 00:03] VITALS: BP 100/51
== END 2017-03-12 00:05 | disposition home or self-care (01) ==
LOC: ED 22:24
DX: J44.1 Chronic obstructive pulmonary disease with (acute) exacerbation (principal); I11.0 Hypertensive heart disease with heart failure; I50.9 Heart failure, unspecified; E11.65 Type 2 diabetes mellitus with hyperglycemia; I25.10 Atherosclerotic heart disease of native coronary artery without angina pectoris; Z86.73 Personal history of transient ischemic attack (TIA), and cerebral infarction without residual deficits; Z86.711 Personal history of pulmonary embolism; Z90.49 Acquired absence of other specified parts of digestive tract
CPT/HCPCS: 36415; 71010; 80048; 82040; 85025; 93005; 96374; 99285; J1100

== ENCOUNTER 2018-04-10 15:11 | Emergency (ER) | payer MEDICAID, MEDICARE ==
[~2018-04-10] VITALS: Ht 177.8 cm; Wt 103.6 kg
[~2018-04-10 15:11] MED LIST changes: +ACET-1600 PO; -AMLO5TAB2 PO; +AMLO5TAB7 PO; +CLOP75TA52 PO; +IPRA3AMP30 INH; +METO25TA91 PO; -PIOG15TA2 PO; +PIOG15TA66 PO; +TAMS-11 PO
[2018-04-10] MEDS ORDERED: SODIUM CHLORIDE FLUSH 10ML SYR IVF ONE (16:00)
[2018-04-10] MEDS ORDERED: ONDANSETRON 2MG/ML, 2ML IVPush ONE (16:00)
[2018-04-10] MEDS ORDERED: ACETAMINOPHEN 325 MG TABLET PO ONE (16:00)
[2018-04-10 16:03] LABS: BASOPHILS # (AUTO) 0.01 x10^3/uL (0-0.1); BASOPHILS % (AUTO) 0 % (0-1); EOSINOPHILS # (AUTO) 0.13 x10^3/uL (0-0.4); EOSINOPHILS % (AUTO) 2 % (1-7); LYMPHOCYTES # (AUTO) 2.09 x10^3/uL (1-3.4); LYMPHOCYTES % (AUTO) 27 % (22-44); MD NO; MEAN CORPUSCULAR HEMOGLOBIN 31.5 pg (27.5-34.5); MEAN CORPUSCULAR HGB CONC 34.2 g/dL (33.2-36.2); MEAN PLATELET VOLUME 9.7 fL (7.4-10.4); MONOCYTES # (AUTO) 0.49 x10^3/uL (0.2-0.8); MONOCYTES % (AUTO) 6 % (2-9); NEUTROPHILS # (AUTO) 4.91 x10^3/uL (1.8-6.8); NEUTROPHILS % (AUTO) 64 % (42-75); PLATELET COUNT 153 x10^3/uL (130-400); RED BLOOD COUNT 5.02 x10^6/uL (4.38-5.82); RED CELL DISTRIBUTION WIDTH 14.4 % (9.4-14.8)
[2018-04-10 16:14] LABS: PROTHROMBIN TIME 10.3 Seconds (9.6-11.5)
[2018-04-10 16:15] LABS: ALANINE AMINOTRANSFERASE 20 U/L (12-78); ALBUMIN 3.5 g/dL (3.4-5.0); ANION GAP 8 mmol/L (5-15); CALCIUM 8.7 mg/dL (8.5-10.1); CHLORIDE 109 mmol/L (98-107); CREATININE 1.46 mg/dL (0.7-1.3)
[2018-04-10] MEDS ORDERED: ONDANSETRON 2MG/ML, 2ML ONE (16:18)
[2018-04-10] MEDS ORDERED: ACETAMINOPHEN 325 MG TABLET ONE (16:18)
[2018-04-10 16:19] LABS: ALKALINE PHOSPHATASE 135 U/L (45-117); BILIRUBIN,TOTAL 0.9 mg/dL (0.2-1.0); TOTAL PROTEIN 7.2 g/dL (6.4-8.2); TROPONIN I < 0.015 ng/mL (0.000-0.045)
[2018-04-10 20:08] VITALS: BP 137/66
== END 2018-04-10 20:13 | disposition home or self-care (01) ==
LOC: ED 17:45
DX: G43.109 Migraine with aura, not intractable, without status migrainosus (principal); R07.2 Precordial pain; E78.5 Hyperlipidemia, unspecified; E11.9 Type 2 diabetes mellitus without complications; J44.9 Chronic obstructive pulmonary disease, unspecified; I25.2 Old myocardial infarction; I11.0 Hypertensive heart disease with heart failure; I50.9 Heart failure, unspecified; F41.9 Anxiety disorder, unspecified; G62.9 Polyneuropathy, unspecified; Z86.73 Personal history of transient ischemic attack (TIA), and cerebral infarction without residual deficits; Z90.49 Acquired absence of other specified parts of digestive tract; Z90.89 Acquired absence of other organs
CPT/HCPCS: 36415; 71045; 80053; 84484; 85025; 85610; 85730; 93005; 96374; 99285; J2405

== ENCOUNTER 2018-05-31 15:48 | Observation (INO) | payer MEDICAID, OTHER ==
[~2018-05-31] VITALS: Ht 177.8 cm; Wt 103.5 kg
[~2018-05-31 15:48] MED LIST changes: +AMLO-150 PO; -AMLO5TAB7 PO
[2018-05-31 17:02] LABS: BASOPHILS # (AUTO) 0.04 x10^3/uL (0-0.1); BASOPHILS % (AUTO) 1 % (0-1); EOSINOPHILS # (AUTO) 0.15 x10^3/uL (0-0.4); EOSINOPHILS % (AUTO) 2 % (1-7); LYMPHOCYTES # (AUTO) 1.78 x10^3/uL (1-3.4); LYMPHOCYTES % (AUTO) 24 % (22-44); MD NO; MEAN CORPUSCULAR HEMOGLOBIN 31.5 pg (27.5-34.5); MEAN CORPUSCULAR HGB CONC 34.1 g/dL (33.2-36.2); MEAN CORPUSCULAR VOLUME 92.6 fL (81-97); MEAN PLATELET VOLUME 9.9 fL (7.4-10.4); MONOCYTES # (AUTO) 0.34 x10^3/uL (0.2-0.8); MONOCYTES % (AUTO) 5 % (2-9); NEUTROPHILS # (AUTO) 5.24 x10^3/uL (1.8-6.8); NEUTROPHILS % (AUTO) 69 % (42-75); PLATELET COUNT 163 x10^3/uL (130-400); RED BLOOD COUNT 4.73 x10^6/uL (4.38-5.82); RED CELL DISTRIBUTION WIDTH 13.6 % (9.4-14.8)
[2018-05-31 17:10] LABS: INTERNATIONAL NORMALIZED RATIO 0.98 (0.93-1.1); PROTHROMBIN TIME 10.4 Seconds (9.6-11.5)
[2018-05-31 17:13] LABS: ALANINE AMINOTRANSFERASE 24 U/L (12-78); ALBUMIN 3.4 g/dL (3.4-5.0); ANION GAP 9 mmol/L (5-15); CALCIUM 8.6 mg/dL (8.5-10.1); CHLORIDE 111 mmol/L (98-107)
[2018-05-31 17:18] LABS: ALKALINE PHOSPHATASE 142 U/L (45-117); BILIRUBIN,TOTAL 0.4 mg/dL (0.2-1.0); CREATININE 1.45 mg/dL (0.7-1.3); TOTAL PROTEIN 6.7 g/dL (6.4-8.2); TROPONIN I < 0.015 ng/mL (0.000-0.045)
[2018-05-31] MEDS ORDERED: NITROGLYCERIN SINGLE TAB 0.4 MG SL ONE (18:15)
[2018-05-31] MEDS: NITROGLYCERIN SINGLE TAB 0.4 MG SL PRN ×2 (18:18→18:33)
[2018-05-31] MEDS ORDERED: ASPIRIN 81 MG TABLET CHEW ONE (18:56)
[2018-05-31] MEDS ORDERED: ASPIRIN 325 MG TABLET PO ONE (19:00)
[2018-05-31] MEDS ORDERED: ASPIRIN 81 MG TABLET CHEW PO ONE (19:00)
[2018-05-31 20:26] VITALS: BP 147/85
[2018-05-31] MEDS ORDERED: ACETAMINOPHEN 325 MG TABLET PO PRN (21:00)
[2018-05-31] MEDS ORDERED: INSULIN GLARGINE 100 UNITS/ML, PEN SQ-INSULIN SCH (21:00)
[2018-05-31] MEDS ORDERED: ONDANSETRON ODT 4 MG PO PRN (21:00)
[2018-05-31] MEDS ORDERED: DOCUSATE 100 MG CAPSULE PO PRN (21:00)
[2018-05-31] MEDS ORDERED: SIMVASTATIN 20 MG TABLET PO SCH (21:00)
[2018-05-31] MEDS ORDERED: hydrALAzine 20 MG/ML, 1ML IVPush PRN (21:00)
[2018-05-31] MEDS ORDERED: LIDODERM 5% PATCH TD PRN (21:00)
[2018-05-31] MEDS: GABAPENTIN 300 MG CAPSULE PO SCH (22:15)
[2018-05-31] MEDS: BACLOFEN 10 MG TABLET PO SCH (22:16)
[2018-06-01 00:11] LABS: TROPONIN I < 0.015 ng/mL (0.000-0.045)
[2018-06-01 02:03] VITALS: BP 135/79
[2018-06-01 05:10] LABS: ANION GAP 9 mmol/L (5-15); CALCIUM 8.4 mg/dL (8.5-10.1); CHLORIDE 111 mmol/L (98-107)
[2018-06-01 05:14] LABS: BASOPHILS # (AUTO) 0.04 x10^3/uL (0-0.1); BASOPHILS % (AUTO) 1 % (0-1); EOSINOPHILS # (AUTO) 0.25 x10^3/uL (0-0.4); EOSINOPHILS % (AUTO) 4 % (1-7); LYMPHOCYTES # (AUTO) 2.74 x10^3/uL (1-3.4); LYMPHOCYTES % (AUTO) 39 % (22-44); MD NO; MEAN CORPUSCULAR HEMOGLOBIN 31.9 pg (27.5-34.5); MEAN CORPUSCULAR HGB CONC 34.3 g/dL (33.2-36.2); MEAN PLATELET VOLUME 9.9 fL (7.4-10.4); MONOCYTES # (AUTO) 0.43 x10^3/uL (0.2-0.8); MONOCYTES % (AUTO) 6 % (2-9); NEUTROPHILS # (AUTO) 3.53 x10^3/uL (1.8-6.8); NEUTROPHILS % (AUTO) 51 % (42-75); PLATELET COUNT 135 x10^3/uL (130-400); RED BLOOD COUNT 4.45 x10^6/uL (4.38-5.82); RED CELL DISTRIBUTION WIDTH 13.5 % (9.4-14.8)
[2018-06-01 05:27] LABS: TROPONIN I < 0.015 ng/mL (0.000-0.045)
[2018-06-01 05:43] VITALS: BP 139/82
[2018-06-01] MEDS ORDERED: METOPROLOL SUCCINATE 25 MG TAB.ER.24H PO SCH (06:00)
[2018-06-01] MEDS ORDERED: REGADENOSON 0.4 MG/5 ML SYRINGE ONE (08:58)
[2018-06-01 09:00] VITALS: BP 136/80
[2018-06-01] MEDS ORDERED: ASPIRIN 81 MG TABLET CHEW PO/NG SCH (09:00)
[2018-06-01] MEDS ORDERED: DABIGATRAN 75 MG CAPSULE PO SCH (09:00)
[2018-06-01] MEDS ORDERED: PANTOPROZOLE 40MG TABLET PO SCH (09:00)
[2018-06-01] MEDS ORDERED: DIVALPROEX 500 MG TABLET.DR PO SCH (09:00)
[2018-06-01] MEDS ORDERED: LINAGLIPTIN 5 MG TAB PO SCH (09:00)
[2018-06-01] MEDS ORDERED: CLOPIDOGREL 75 MG TABLET PO SCH (09:00)
[2018-06-01] MEDS ORDERED: ENALAPRIL 20MG TABLET PO SCH (09:00)
[2018-06-01] MEDS: GABAPENTIN 300 MG CAPSULE PO SCH (11:29)
[2018-06-01] MEDS: BACLOFEN 10 MG TABLET PO SCH (11:29)
[2018-06-01 13:52] VITALS: BP 145/78
== END 2018-06-01 16:00 | disposition home or self-care (01) ==
LOC: ED 17:21 → INTOOBSV 18:05 → EDIP 18:05 → 5SO 20:11
PROVIDERS: ADMIT Internal Medicine; ATTEND Family Medicine
DX: I20.0 Unstable angina (principal); R42 Dizziness and giddiness; I50.32 Chronic diastolic (congestive) heart failure; E78.5 Hyperlipidemia, unspecified; F43.10 Post-traumatic stress disorder, unspecified; I11.0 Hypertensive heart disease with heart failure; I25.2 Old myocardial infarction; F41.1 Generalized anxiety disorder; K21.9 Gastro-esophageal reflux disease without esophagitis; N40.0 Benign prostatic hyperplasia without lower urinary tract symptoms; J44.9 Chronic obstructive pulmonary disease, unspecified; E11.65 Type 2 diabetes mellitus with hyperglycemia; E11.21 Type 2 diabetes mellitus with diabetic nephropathy; G43.909 Migraine, unspecified, not intractable, without status migrainosus; F32.9 Major depressive disorder, single episode, unspecified; Z80.1 Family history of malignant neoplasm of trachea, bronchus and lung; Z82.0 Family history of epilepsy and other diseases of the nervous system; Z85.828 Personal history of other malignant neoplasm of skin; Z83.3 Family history of diabetes mellitus; Z86.711 Personal history of pulmonary embolism; Z95.0 Presence of cardiac pacemaker
CPT/HCPCS: 36415; 70450; 71045; 78452; 80048; 80053; 82962; 83880; 84484; 85025; 85610; 93005; 93017; 93308; 93321; 93325; 96372; 99285; A9502; C9898; G0378; J1815; J2785

== ENCOUNTER 2018-06-29 13:50 | Emergency (ER) | payer MEDICAID, OTHER ==
[~2018-06-29] VITALS: Ht 177.8 cm; Wt 102.0 kg
--- NOTE | 2018-06-29 14:06 | NUR ---
Pt presents for dizziness and fall. Pt states he was standing looking at window, had sudden onset vertigo, fell down and hit shoulders and head on floor. Pt states BUCK 8/10 and bilateral shoulder pain. Pt has hx of TIA, CVA, DM, HTN. BG 161 by EMS. VSS.
[2018-06-29] MEDS ORDERED: MECLIZINE CHEWABLE 25 MG TAB ONE (14:09)
[2018-06-29 14:30] LABS: BASOPHILS # (AUTO) 0.02 x10^3/uL (0-0.1); BASOPHILS % (AUTO) 0 % (0-1); EOSINOPHILS # (AUTO) 0.11 x10^3/uL (0-0.4); EOSINOPHILS % (AUTO) 2 % (1-7); LYMPHOCYTES # (AUTO) 0.93 x10^3/uL (1-3.4); LYMPHOCYTES % (AUTO) 13 % (22-44); MD NO; MEAN CORPUSCULAR HEMOGLOBIN 30.9 pg (27.5-34.5); MEAN CORPUSCULAR HGB CONC 33.1 g/dL (33.2-36.2); MEAN CORPUSCULAR VOLUME 93.3 fL (81-97); MEAN PLATELET VOLUME 9.8 fL (7.4-10.4); MONOCYTES # (AUTO) 0.46 x10^3/uL (0.2-0.8); MONOCYTES % (AUTO) 7 % (2-9); NEUTROPHILS # (AUTO) 5.49 x10^3/uL (1.8-6.8); NEUTROPHILS % (AUTO) 78 % (42-75); PLATELET COUNT 136 x10^3/uL (130-400); RED BLOOD COUNT 4.76 x10^6/uL (4.38-5.82); RED CELL DISTRIBUTION WIDTH 13.4 % (9.4-14.8)
[2018-06-29] MEDS ORDERED: MECLIZINE CHEWABLE 25 MG TAB PO ONE (14:30)
[2018-06-29 14:34] LABS: INTERNATIONAL NORMALIZED RATIO 1.06 (0.93-1.1); PROTHROMBIN TIME 11.2 Seconds (9.6-11.5)
[2018-06-29 14:36] LABS: ALBUMIN 3.3 g/dL (3.4-5.0); ANION GAP 7 mmol/L (5-15); CALCIUM 8.2 mg/dL (8.5-10.1); CHLORIDE 104 mmol/L (98-107); CREATININE 1.55 mg/dL (0.7-1.3)
--- NOTE | 2018-06-29 14:41 | NUR ---
TASK RN: PT VERBALIZES HIS DIZZINESS HAS DECREASED FROM 8/10 TO 5/10.
[2018-06-29 14:50] LABS: CULTURE INDICATED? NO; MICROSCOPIC NOT IND
[2018-06-29 15:38] VITALS: BP 123/78
== END 2018-06-29 16:09 | disposition home or self-care (01) ==
LOC: ED 13:56
DX: R42 Dizziness and giddiness (principal); I10 Essential (primary) hypertension; E11.9 Type 2 diabetes mellitus without complications; R51 Headache
CPT/HCPCS: 36415; 70450; 80048; 81003; 82040; 85025; 85610; 85730; 93005; 99284

== ENCOUNTER 2018-10-05 13:45 | Emergency (ER) | payer OTHER ==
[~2018-10-05] VITALS: Ht 177.8 cm; Wt 102.0 kg
[~2018-10-05 13:45] MED LIST changes: +APIX5TAB PO; +HYDR25CA94 PO; +INSU100I13 SQ-INSULIN; -MIRT15TA6 PO; +MIRT15TA94 PO; +PIOG15TA4 PO
[2018-10-05] MEDS ORDERED: SODIUM CHLORIDE FLUSH 10ML SYR IVF ONE (14:00)
[2018-10-05] MEDS ORDERED: DIPHENHYDRAMINE 50 MG/ML, 1ML IVPush ONE (14:00)
[2018-10-05] MEDS ORDERED: METOCLOPRAMIDE 5 MG/ML, 2ML IVPush ONE (14:00)
[2018-10-05 14:19] LABS: BASOPHILS # (AUTO) 0.06 x10^3/uL (0-0.1); BASOPHILS % (AUTO) 1 % (0-1); EOSINOPHILS # (AUTO) 0.21 x10^3/uL (0-0.4); EOSINOPHILS % (AUTO) 3 % (1-7); LYMPHOCYTES # (AUTO) 2.09 x10^3/uL (1-3.4); LYMPHOCYTES % (AUTO) 30 % (22-44); MD NO; MEAN CORPUSCULAR HEMOGLOBIN 30.8 pg (27.5-34.5); MEAN CORPUSCULAR HGB CONC 33.5 g/dL (33.2-36.2); MEAN CORPUSCULAR VOLUME 91.8 fL (81-97); MONOCYTES # (AUTO) 0.44 x10^3/uL (0.2-0.8); MONOCYTES % (AUTO) 6 % (2-9); NEUTROPHILS # (AUTO) 4.28 x10^3/uL (1.8-6.8); NEUTROPHILS % (AUTO) 61 % (42-75); PLATELET COUNT 165 x10^3/uL (130-400); RED BLOOD COUNT 4.94 x10^6/uL (4.38-5.82); RED CELL DISTRIBUTION WIDTH 13.9 % (9.4-14.8)
[2018-10-05 14:30] LABS: ALBUMIN 3.5 g/dL (3.4-5.0); ANION GAP 4 mmol/L (5-15); CALCIUM 8.4 mg/dL (8.5-10.1); CHLORIDE 112 mmol/L (98-107); CREATININE 1.27 mg/dL (0.7-1.3)
[2018-10-05] MEDS ORDERED: DIPHENHYDRAMINE 50 MG/ML, 1ML ONE (14:41)
[2018-10-05] MEDS ORDERED: METOCLOPRAMIDE 5 MG/ML, 2ML ONE (14:41)
--- NOTE | 2018-10-05 14:48 | NUR ---
STATES BUCK, PHOTOPHOBIA, AURA EARLIER. MEDICATED FOR SAME
[2018-10-05 14:49] VITALS: BP 153/82
--- NOTE | 2018-10-05 15:39 | NUR ---
PT STATES BUCK IMPROVED, 5/10 SINCE MEDICATED.
== END 2018-10-05 15:42 | disposition home or self-care (01) ==
LOC: ED 14:02
DX: G43.111 Migraine with aura, intractable, with status migrainosus (principal); I10 Essential (primary) hypertension; E78.5 Hyperlipidemia, unspecified; I25.10 Atherosclerotic heart disease of native coronary artery without angina pectoris; I11.0 Hypertensive heart disease with heart failure; I50.9 Heart failure, unspecified; I25.2 Old myocardial infarction; Z86.73 Personal history of transient ischemic attack (TIA), and cerebral infarction without residual deficits; Z95.0 Presence of cardiac pacemaker; Z90.49 Acquired absence of other specified parts of digestive tract; Z72.9 Problem related to lifestyle, unspecified
CPT/HCPCS: 36415; 71045; 80048; 82040; 85025; 93005; 96374; 96375; 99284; J1200; J2765

== ENCOUNTER 2018-11-25 11:25 | Inpatient (IN) | payer OTHER ==
[~2018-11-25] VITALS: Ht 177.8 cm; Wt 105.1 kg
[~2018-11-25 11:25] MED LIST changes: -FLUT16SP NAS; +FLUT16SP24 NAS; +[UNRECOGNIZED DRUG - CODE] SL; -[UNRECOGNIZED DRUG - CODE] SL
[2018-11-25] MEDS ORDERED: ONDANSETRON 2MG/ML, 2ML IVPush ONE (12:00)
[2018-11-25] MEDS ORDERED: SODIUM CHLORIDE FLUSH 10ML SYR IVF ONE (12:00)
--- NOTE | 2018-11-25 12:07 | NUR ---
PATIETN TO ABD X-RAY
[2018-11-25] MEDS ORDERED: ONDANSETRON 2MG/ML, 2ML ONE (12:09)
--- NOTE | 2018-11-25 12:16 | NUR ---
PATIENT BACK FROM [facility], MEDICATED. GIVNE URINAL FOR UA SAMPLE
[2018-11-25 12:42] LABS: MD NO; MEAN CORPUSCULAR HEMOGLOBIN 31.1 pg (27.5-34.5); RED BLOOD COUNT 5.48 x10^6/uL (4.38-5.82)
[2018-11-25 12:54] LABS: ALBUMIN 3.6 g/dL (3.4-5.0); ANION GAP 6 mmol/L (5-15); CALCIUM 9.3 mg/dL (8.5-10.1); CHLORIDE 109 mmol/L (98-107)
[2018-11-25 13:00] LABS: ALANINE AMINOTRANSFERASE 22 U/L (12-78); ALKALINE PHOSPHATASE 140 U/L (45-117); BILIRUBIN,TOTAL 0.9 mg/dL (0.2-1.0); CREATININE 1.69 mg/dL (0.7-1.3); TOTAL PROTEIN 7.2 g/dL (6.4-8.2); TROPONIN I < 0.015 ng/mL (0.000-0.045)
[2018-11-25] MEDS ORDERED: MORPHINE SULFATE 4 MG/ML, 1ML ONE (13:14)
[2018-11-25 13:15] LABS: BASOPHILS # (AUTO) 0.01 x10^3/uL (0-0.1); BASOPHILS % (AUTO) 0 % (0-1); EOSINOPHILS # (AUTO) 0.03 x10^3/uL (0-0.4); EOSINOPHILS % (AUTO) 0 % (1-7); LYMPHOCYTES # (AUTO) 0.92 x10^3/uL (1-3.4); LYMPHOCYTES % (AUTO) 8 % (22-44); MEAN CORPUSCULAR HGB CONC 33.1 g/dL (33.2-36.2); MEAN CORPUSCULAR VOLUME 94.1 fL (81-97); MEAN PLATELET VOLUME 10.4 fL (7.4-10.4); MONOCYTES # (AUTO) 0.46 x10^3/uL (0.2-0.8); MONOCYTES % (AUTO) 4 % (2-9); NEUTROPHILS # (AUTO) 9.88 x10^3/uL (1.8-6.8); NEUTROPHILS % (AUTO) 88 % (42-75); PLATELET COUNT 162 x10^3/uL (130-400); RED CELL DISTRIBUTION WIDTH 13.4 % (9.4-14.8)
[2018-11-25] MEDS: MORPHINE SULFATE 4 MG/ML, 1ML IVPush PRN ×2 (13:23→16:37)
[2018-11-25 13:24] LABS: ACETONE, SERUM Negative (Negative)
--- NOTE | 2018-11-25 13:51 | NUR ---
PATIENT REPORTS PAIN IS BETTER. INITALLY WORSENED TO 7/10 AND IS NOW 3/10. PATIENT AWARE OF PLAN OF CARE AND HAS CALELD TO UPDATE.
[2018-11-25] MEDS ORDERED: BACL20TA PO (14:01)
[2018-11-25] MEDS ORDERED: CLOP75TA52 PO (14:01)
[2018-11-25] MEDS ORDERED: ENAL20TA PO (14:01)
[2018-11-25] MEDS ORDERED: GABA-827 PO (14:01)
--- NOTE | 2018-11-25 14:01 | NUR ---
VOMITING A SMALL AMOUNT, APPROX 50 ML., OF DARK BROWN VOMIT
--- NOTE | 2018-11-25 14:30 | NUR ---
PT BACK FROM CT. RESTING IN BED.
[2018-11-25] MEDS ORDERED: OMNIPAQUE 350 MG/ML, 100ML BOTTLE ONE (14:34)
[2018-11-25] MEDS ORDERED: SODIUM CHLORIDE 0.9% 1,000 ML IV ONE (15:05)
[2018-11-25] MEDS ORDERED: SODIUM CHLORIDE FLUSH 10ML SYR IVF PRN (15:30)
[2018-11-25] MEDS: D5%-0.45% NACL 1,000 ML IV SCH ×2 (16:19→23:48)
[2018-11-25] MEDS ORDERED: LABETALOL 5 MG/ML SYRINGE IVPush PRN (16:30)
[2018-11-25] MEDS ORDERED: HYDROXYZINE PAMOATE 25MG CAP PO SCH (16:30)
[2018-11-25] MEDS ORDERED: ONDANSETRON ODT 4 MG PO PRN (16:30)
[2018-11-25 17:35] LABS: MICROSCOPIC NOT IND
[2018-11-25 17:41] LABS: CULTURE INDICATED? NO
[2018-11-25 17:42] LABS: FREE T4 (FREE THYROXINE) 1.08 ng/dL (0.76-1.46)
[2018-11-25] MEDS ORDERED: HEPARIN 5,000 UNITS/ML, 1ML IV ONE (18:00)
[2018-11-25 19:54] VITALS: BP 149/84
[2018-11-25] MEDS: GABAPENTIN 300 MG CAPSULE PO SCH (21:00)
[2018-11-25] MEDS: SIMVASTATIN 20 MG TABLET PO SCH (21:00)
[2018-11-25] MEDS ORDERED: MORPHINE SULFATE 4 MG/ML, 1ML IVPush PRN (21:30)
[2018-11-25] MEDS: HEPARIN 25,000 UNITS/500ML PMX 500 ML IV PRN (23:02)
[2018-11-26 01:51] VITALS: BP 132/83
[2018-11-26 05:04] LABS: BASOPHILS # (AUTO) 0.01 x10^3/uL (0-0.1); BASOPHILS % (AUTO) 0 % (0-1); EOSINOPHILS # (AUTO) 0.01 x10^3/uL (0-0.4); EOSINOPHILS % (AUTO) 0 % (1-7); LYMPHOCYTES # (AUTO) 1.16 x10^3/uL (1-3.4); LYMPHOCYTES % (AUTO) 7 % (22-44); MD NO; MEAN CORPUSCULAR HEMOGLOBIN 31.4 pg (27.5-34.5); MEAN CORPUSCULAR HGB CONC 33.1 g/dL (33.2-36.2); MEAN CORPUSCULAR VOLUME 94.9 fL (81-97); MEAN PLATELET VOLUME 10.7 fL (7.4-10.4); MONOCYTES # (AUTO) 0.86 x10^3/uL (0.2-0.8); MONOCYTES % (AUTO) 5 % (2-9); NEUTROPHILS # (AUTO) 13.82 x10^3/uL (1.8-6.8); NEUTROPHILS % (AUTO) 87 % (42-75); PLATELET COUNT 160 x10^3/uL (130-400); RED BLOOD COUNT 5.12 x10^6/uL (4.38-5.82); RED CELL DISTRIBUTION WIDTH 13.6 % (9.4-14.8)
[2018-11-26 05:20] LABS: CHLORIDE 107 mmol/L (98-107)
[2018-11-26 05:35] LABS: ALANINE AMINOTRANSFERASE 16 U/L (12-78); ALBUMIN 3.1 g/dL (3.4-5.0); ALKALINE PHOSPHATASE 116 U/L (45-117); ANION GAP 7 mmol/L (5-15); BILIRUBIN,TOTAL 0.6 mg/dL (0.2-1.0); CALCIUM 8.3 mg/dL (8.5-10.1); CREATININE 1.53 mg/dL (0.7-1.3); TOTAL PROTEIN 6.3 g/dL (6.4-8.2)
[2018-11-26] MEDS ORDERED: PANTOPRAZOLE 40 MG IV IVPush SCH ×2 (07:30→08:00)
[2018-11-26 07:38] VITALS: BP 124/78
[2018-11-26] MEDS: D5%-0.45% NACL 1,000 ML IV SCH ×2 (08:35→17:52)
[2018-11-26] MEDS: PANTOPROZOLE 40MG TABLET PO SCH (08:37)
[2018-11-26] MEDS: GABAPENTIN 300 MG CAPSULE PO SCH (08:37)
[2018-11-26] MEDS ORDERED: DIVALPROEX 500 MG TABLET.DR PO SCH (09:00)
[2018-11-26 13:36] VITALS: BP 129/79
[2018-11-26] MEDS: HEPARIN 5,000 UNITS/ML, 1ML IV PRN (13:45)
[2018-11-26 19:49] VITALS: BP 115/76
[2018-11-26] MEDS: SIMVASTATIN 20 MG TABLET PO SCH (20:50)
[2018-11-26] MEDS: HEPARIN 25,000 UNITS/500ML PMX 500 ML IV PRN (23:42)
[2018-11-27] MEDS: D5%-0.45% NACL 1,000 ML IV SCH ×3 (01:10→17:30)
[2018-11-27 01:48] VITALS: BP 137/72
[2018-11-27] MEDS: HEPARIN 5,000 UNITS/ML, 1ML IV PRN (02:48)
[2018-11-27] MEDS: MORPHINE SULFATE 4 MG/ML, 1ML IVPush PRN (05:15)
[2018-11-27 05:51] LABS: BASOPHILS # (AUTO) 0.02 x10^3/uL (0-0.1); BASOPHILS % (AUTO) 0 % (0-1); EOSINOPHILS # (AUTO) 0.19 x10^3/uL (0-0.4); EOSINOPHILS % (AUTO) 3 % (1-7); LYMPHOCYTES # (AUTO) 1.34 x10^3/uL (1-3.4); LYMPHOCYTES % (AUTO) 18 % (22-44); MD NO; MEAN CORPUSCULAR HEMOGLOBIN 30.9 pg (27.5-34.5); MEAN CORPUSCULAR HGB CONC 32.7 g/dL (33.2-36.2); MEAN CORPUSCULAR VOLUME 94.6 fL (81-97); MEAN PLATELET VOLUME 10.4 fL (7.4-10.4); MONOCYTES # (AUTO) 0.51 x10^3/uL (0.2-0.8); MONOCYTES % (AUTO) 7 % (2-9); NEUTROPHILS # (AUTO) 5.21 x10^3/uL (1.8-6.8); NEUTROPHILS % (AUTO) 72 % (42-75); PLATELET COUNT 113 x10^3/uL (130-400); RED BLOOD COUNT 4.08 x10^6/uL (4.38-5.82); RED CELL DISTRIBUTION WIDTH 13.7 % (9.4-14.8)
[2018-11-27 06:46] LABS: ALANINE AMINOTRANSFERASE 17 U/L (12-78); ALBUMIN 2.8 g/dL (3.4-5.0); ANION GAP 7 mmol/L (5-15); CHLORIDE 109 mmol/L (98-107); CREATININE 1.32 mg/dL (0.7-1.3)
[2018-11-27 06:48] LABS: ALKALINE PHOSPHATASE 102 U/L (45-117); BILIRUBIN,TOTAL 0.6 mg/dL (0.2-1.0); TOTAL PROTEIN 5.7 g/dL (6.4-8.2)
[2018-11-27 07:05] VITALS: BP 125/75
[2018-11-27] MEDS: PANTOPROZOLE 40MG TABLET PO SCH (08:20)
[2018-11-27 09:26] LABS: CLOSTRIDIUM DIFFICILE ANTIGEN NEGATIVE; CLOSTRIDIUM DIFFICILE TOXIN NEGATIVE (Negative)
[2018-11-27 14:10] VITALS: BP 127/75
[2018-11-27] MEDS: HEPARIN 25,000 UNITS/500ML PMX 500 ML IV PRN (16:44)
[2018-11-27] MEDS: SIMVASTATIN 20 MG TABLET PO SCH (21:43)
[2018-11-27 23:08] VITALS: BP 119/71
[2018-11-28] MEDS: MORPHINE SULFATE 4 MG/ML, 1ML IVPush PRN ×3 (00:29→23:45)
[2018-11-28 00:32] VITALS: BP 121/74
[2018-11-28] MEDS: D5%-0.45% NACL 1,000 ML IV SCH ×3 (03:55→19:32)
[2018-11-28 05:57] LABS: ALBUMIN 2.7 g/dL (3.4-5.0); CHLORIDE 109 mmol/L (98-107)
[2018-11-28 05:59] LABS: BASOPHILS # (AUTO) 0.03 x10^3/uL (0-0.1); BASOPHILS % (AUTO) 1 % (0-1); EOSINOPHILS % (AUTO) 3 % (1-7); LYMPHOCYTES # (AUTO) 2.52 x10^3/uL (1-3.4); LYMPHOCYTES % (AUTO) 40 % (22-44); MD NO; MEAN CORPUSCULAR HEMOGLOBIN 30.6 pg (27.5-34.5); MEAN CORPUSCULAR HGB CONC 32.6 g/dL (33.2-36.2); MEAN PLATELET VOLUME 10.4 fL (7.4-10.4); MONOCYTES % (AUTO) 8 % (2-9); NEUTROPHILS # (AUTO) 3.06 x10^3/uL (1.8-6.8); NEUTROPHILS % (AUTO) 49 % (42-75); PLATELET COUNT 129 x10^3/uL (130-400); RED BLOOD COUNT 4.57 x10^6/uL (4.38-5.82); RED CELL DISTRIBUTION WIDTH 13.1 % (9.4-14.8)
[2018-11-28 06:01] LABS: ALANINE AMINOTRANSFERASE 20 U/L (12-78); ALKALINE PHOSPHATASE 102 U/L (45-117); ANION GAP 6 mmol/L (5-15); BILIRUBIN,TOTAL 0.6 mg/dL (0.2-1.0); CREATININE 1.39 mg/dL (0.7-1.3); TOTAL PROTEIN 5.6 g/dL (6.4-8.2)
[2018-11-28 08:23] VITALS: BP 153/68
[2018-11-28] MEDS: PANTOPROZOLE 40MG TABLET PO SCH (09:05)
[2018-11-28] MEDS: HEPARIN 25,000 UNITS/500ML PMX 500 ML IV PRN (11:05)
[2018-11-28 15:15] VITALS: BP 145/75
[2018-11-28 19:38] VITALS: BP 150/83
[2018-11-28] MEDS: SIMVASTATIN 20 MG TABLET PO SCH (21:01)
[2018-11-29 01:29] VITALS: BP 146/72
[2018-11-29] MEDS: D5%-0.45% NACL 1,000 ML IV SCH ×3 (03:25→19:35)
[2018-11-29 06:49] VITALS: BP 113/61
[2018-11-29 07:24] LABS: BASOPHILS # (AUTO) 0.01 x10^3/uL (0-0.1); BASOPHILS % (AUTO) 0 % (0-1); EOSINOPHILS # (AUTO) 0.16 x10^3/uL (0-0.4); EOSINOPHILS % (AUTO) 3 % (1-7); LYMPHOCYTES # (AUTO) 1.86 x10^3/uL (1-3.4); LYMPHOCYTES % (AUTO) 33 % (22-44); MD NO; MEAN CORPUSCULAR HEMOGLOBIN 30.8 pg (27.5-34.5); MEAN CORPUSCULAR HGB CONC 32.9 g/dL (33.2-36.2); MEAN CORPUSCULAR VOLUME 93.5 fL (81-97); MEAN PLATELET VOLUME 10.2 fL (7.4-10.4); MONOCYTES # (AUTO) 0.37 x10^3/uL (0.2-0.8); MONOCYTES % (AUTO) 7 % (2-9); NEUTROPHILS # (AUTO) 3.27 x10^3/uL (1.8-6.8); NEUTROPHILS % (AUTO) 58 % (42-75); PLATELET COUNT 137 x10^3/uL (130-400); RED BLOOD COUNT 4.64 x10^6/uL (4.38-5.82); RED CELL DISTRIBUTION WIDTH 13.1 % (9.4-14.8)
[2018-11-29 07:34] LABS: ALANINE AMINOTRANSFERASE 24 U/L (12-78); ALBUMIN 2.7 g/dL (3.4-5.0); ANION GAP 7 mmol/L (5-15); CALCIUM 7.9 mg/dL (8.5-10.1); CHLORIDE 110 mmol/L (98-107); CREATININE 1.32 mg/dL (0.7-1.3)
[2018-11-29 07:37] LABS: ALKALINE PHOSPHATASE 94 U/L (45-117); BILIRUBIN,TOTAL 0.5 mg/dL (0.2-1.0); TOTAL PROTEIN 5.5 g/dL (6.4-8.2)
[2018-11-29] MEDS: HEPARIN 5,000 UNITS/ML, 1ML IV PRN (08:03)
[2018-11-29] MEDS: PANTOPROZOLE 40MG TABLET PO SCH (08:04)
[2018-11-29] MEDS: HEPARIN 25,000 UNITS/500ML PMX 500 ML IV PRN ×2 (08:05→22:08)
[2018-11-29 14:04] VITALS: BP 116/65
[2018-11-29] MEDS: ONDANSETRON 2MG/ML, 2ML IVPush PRN (17:58)
[2018-11-29 19:14] VITALS: BP 146/77
[2018-11-29] MEDS: SIMVASTATIN 20 MG TABLET PO SCH (19:35)
[2018-11-30] MEDS: ONDANSETRON 2MG/ML, 2ML IVPush PRN (00:51)
[2018-11-30] MEDS: MORPHINE SULFATE 4 MG/ML, 1ML IVPush PRN ×2 (00:51→09:44)
[2018-11-30 03:10] VITALS: BP 123/73
[2018-11-30] MEDS: D5%-0.45% NACL 1,000 ML IV SCH ×3 (03:13→19:53)
[2018-11-30 05:35] VITALS: BP 131/77
[2018-11-30 07:27] VITALS: BP 149/76
[2018-11-30] MEDS: PANTOPROZOLE 40MG TABLET PO SCH (09:44)
[2018-11-30 13:00] VITALS: BP 142/82
[2018-11-30] MEDS: HEPARIN 25,000 UNITS/500ML PMX 500 ML IV PRN (16:59)
[2018-11-30 19:14] VITALS: BP 158/75
[2018-11-30] MEDS: SIMVASTATIN 20 MG TABLET PO SCH (19:53)
[2018-12-01 01:17] VITALS: BP 107/66
[2018-12-01] MEDS: D5%-0.45% NACL 1,000 ML IV SCH ×3 (03:10→20:19)
[2018-12-01 05:28] LABS: BASOPHILS # (AUTO) 0.02 x10^3/uL (0-0.1); BASOPHILS % (AUTO) 0 % (0-1); EOSINOPHILS # (AUTO) 0.18 x10^3/uL (0-0.4); EOSINOPHILS % (AUTO) 3 % (1-7); LYMPHOCYTES # (AUTO) 1.87 x10^3/uL (1-3.4); LYMPHOCYTES % (AUTO) 32 % (22-44); MD NO; MEAN CORPUSCULAR HGB CONC 33.1 g/dL (33.2-36.2); MEAN CORPUSCULAR VOLUME 93.7 fL (81-97); MEAN PLATELET VOLUME 9.6 fL (7.4-10.4); MONOCYTES # (AUTO) 0.38 x10^3/uL (0.2-0.8); MONOCYTES % (AUTO) 7 % (2-9); NEUTROPHILS # (AUTO) 3.32 x10^3/uL (1.8-6.8); NEUTROPHILS % (AUTO) 58 % (42-75); PLATELET COUNT 130 x10^3/uL (130-400); RED BLOOD COUNT 4.43 x10^6/uL (4.38-5.82)
[2018-12-01 05:46] LABS: CHLORIDE 110 mmol/L (98-107)
[2018-12-01 06:08] LABS: ALANINE AMINOTRANSFERASE 37 U/L (12-78); ALBUMIN 2.6 g/dL (3.4-5.0); ALKALINE PHOSPHATASE 108 U/L (45-117); ANION GAP 7 mmol/L (5-15); BILIRUBIN,TOTAL 0.3 mg/dL (0.2-1.0); CALCIUM 7.8 mg/dL (8.5-10.1); CREATININE 1.25 mg/dL (0.7-1.3); TOTAL PROTEIN 5.6 g/dL (6.4-8.2)
[2018-12-01] MEDS: HEPARIN 25,000 UNITS/500ML PMX 500 ML IV PRN ×3 (06:10→16:34)
[2018-12-01 08:01] VITALS: BP 140/75
[2018-12-01] MEDS ORDERED: FENTANYL PF 250 MCG/5ML ONE (09:29)
[2018-12-01] MEDS ORDERED: MIDAZOLAM 1 MG/ML, 2ML ONE (09:29)
[2018-12-01] MEDS ORDERED: LIDOCAINE 2%, 6 ML JEL.PF.APP MM ONE (09:31)
[2018-12-01] MEDS ORDERED: BUPIVACAINE/PF 0.25% ONE ×2 (09:32→09:33)
[2018-12-01] MEDS ORDERED: PROPOFOL 10 MG/ML, 20ML ONE (09:33)
[2018-12-01] MEDS ORDERED: DEXAMETHASONE 4 MG/ML, 1ML ONE (09:34)
[2018-12-01] MEDS ORDERED: NEOSTIGMINE 1 MG/ML, 10ML ONE (10:38)
[2018-12-01] MEDS ORDERED: ONDANSETRON 2MG/ML, 2ML ONE (10:38)
[2018-12-01] MEDS ORDERED: GLYCOPYRROLATE 0.2MG/1ML, 5ML ONE (10:38)
[2018-12-01] MEDS ORDERED: hydrALAzine 20 MG/ML, 1ML ONE (11:04)
[2018-12-01] MEDS ORDERED: FENTANYL PF 100 MCG/2ML ONE (11:12)
[2018-12-01] MEDS ORDERED: OXYcodone 5 MG/5 ML ORAL.SOL UDC ONE (11:12)
[2018-12-01] MEDS ORDERED: SUCCINYLCHOLINE 20 MG/ML, 10ML ONE (11:21)
[2018-12-01] MEDS ORDERED: ROCURONIUM 10MG/ML,5ML ONE (11:21)
[2018-12-01] MEDS ORDERED: hydrALAzine 20 MG/ML, 1ML IV PRN (11:30)
[2018-12-01] MEDS ORDERED: OXYcodone 5 MG/5 ML ORAL.SOL UDC PO PRN (11:30)
[2018-12-01] MEDS ORDERED: LABETALOL 5MG/ML, 20ML IV PRN (11:30)
[2018-12-01] MEDS ORDERED: PROMETHAZINE 25 MG/ML, 1ML IV PRN (11:30)
[2018-12-01] MEDS ORDERED: HYDROmorphone 2 MG/ML, 1ML IVPush PRN (11:30)
[2018-12-01] MEDS ORDERED: FENTANYL PF 100 MCG/2ML IV PRN (11:30)
[2018-12-01 12:10] VITALS: BP 135/58
[2018-12-01 13:12] VITALS: BP 138/81
[2018-12-01] MEDS: MORPHINE SULFATE 4 MG/ML, 1ML IVPush PRN ×2 (13:37→22:29)
[2018-12-01] MEDS: PANTOPROZOLE 40MG TABLET PO SCH (16:30)
[2018-12-01 20:05] VITALS: BP 157/86
[2018-12-01] MEDS: SIMVASTATIN 20 MG TABLET PO SCH (20:18)
[2018-12-02 00:01] VITALS: BP 121/70
[2018-12-02 04:20] VITALS: BP 129/69
[2018-12-02] MEDS: MORPHINE SULFATE 4 MG/ML, 1ML IVPush PRN ×2 (04:49→21:35)
[2018-12-02] MEDS: D5%-0.45% NACL 1,000 ML IV SCH ×2 (04:52→19:30)
[2018-12-02 06:05] LABS: MEAN CORPUSCULAR HEMOGLOBIN 31.1 pg (27.5-34.5); MEAN CORPUSCULAR HGB CONC 33.7 g/dL (33.2-36.2); MEAN CORPUSCULAR VOLUME 92.3 fL (81-97); MEAN PLATELET VOLUME 9.9 fL (7.4-10.4); PLATELET COUNT 149 x10^3/uL (130-400); RED BLOOD COUNT 4.38 x10^6/uL (4.38-5.82); RED CELL DISTRIBUTION WIDTH 13.3 % (9.4-14.8)
[2018-12-02 06:13] LABS: ALBUMIN 2.8 g/dL (3.4-5.0); ANION GAP 8 mmol/L (5-15); CALCIUM 8.1 mg/dL (8.5-10.1); CHLORIDE 108 mmol/L (98-107)
[2018-12-02 06:16] LABS: ALANINE AMINOTRANSFERASE 30 U/L (12-78); ALKALINE PHOSPHATASE 111 U/L (45-117); BILIRUBIN,TOTAL 0.5 mg/dL (0.2-1.0); CREATININE 1.46 mg/dL (0.7-1.3); TOTAL PROTEIN 5.9 g/dL (6.4-8.2)
[2018-12-02 06:30] LABS: BASOPHILS # (AUTO) 0.02 x10^3/uL (0-0.1); BASOPHILS % (AUTO) 0 % (0-1); EOSINOPHILS # (AUTO) 0.02 x10^3/uL (0-0.4); EOSINOPHILS % (AUTO) 0 % (1-7); LYMPHOCYTES # (AUTO) 1.68 x10^3/uL (1-3.4); LYMPHOCYTES % (AUTO) 16 % (22-44); MD SCAN; MONOCYTES # (AUTO) 0.87 x10^3/uL (0.2-0.8); MONOCYTES % (AUTO) 8 % (2-9); NEUTROPHILS # (AUTO) 7.93 x10^3/uL (1.8-6.8); NEUTROPHILS % (AUTO) 75 % (42-75)
[2018-12-02] MEDS: HEPARIN 5,000 UNITS/ML, 1ML IV PRN ×2 (06:43→13:47)
[2018-12-02 07:37] VITALS: BP 124/76
[2018-12-02] MEDS: PANTOPROZOLE 40MG TABLET PO SCH (07:37)
[2018-12-02] MEDS: HEPARIN 25,000 UNITS/500ML PMX 500 ML IV PRN (11:19)
[2018-12-02 12:28] VITALS: BP 146/84
[2018-12-02 20:23] VITALS: BP 148/85
[2018-12-02] MEDS: SIMVASTATIN 20 MG TABLET PO SCH (21:35)
[2018-12-03] MEDS: D5%-0.45% NACL 1,000 ML IV SCH ×2 (01:16→21:19)
[2018-12-03 01:34] VITALS: BP 146/84
[2018-12-03 02:39] LABS: BASOPHILS # (AUTO) 0.04 x10^3/uL (0-0.1); BASOPHILS % (AUTO) 1 % (0-1); EOSINOPHILS # (AUTO) 0.25 x10^3/uL (0-0.4); EOSINOPHILS % (AUTO) 3 % (1-7); LYMPHOCYTES # (AUTO) 2.17 x10^3/uL (1-3.4); LYMPHOCYTES % (AUTO) 26 % (22-44); MD NO; MEAN CORPUSCULAR HEMOGLOBIN 31.5 pg (27.5-34.5); MEAN CORPUSCULAR HGB CONC 33.3 g/dL (33.2-36.2); MEAN CORPUSCULAR VOLUME 94.7 fL (81-97); MEAN PLATELET VOLUME 9.9 fL (7.4-10.4); MONOCYTES # (AUTO) 0.76 x10^3/uL (0.2-0.8); MONOCYTES % (AUTO) 9 % (2-9); NEUTROPHILS # (AUTO) 5.25 x10^3/uL (1.8-6.8); NEUTROPHILS % (AUTO) 62 % (42-75); PLATELET COUNT 144 x10^3/uL (130-400); RED BLOOD COUNT 4.29 x10^6/uL (4.38-5.82); RED CELL DISTRIBUTION WIDTH 13.4 % (9.4-14.8)
[2018-12-03 02:44] LABS: ALANINE AMINOTRANSFERASE 22 U/L (12-78); ALBUMIN 2.6 g/dL (3.4-5.0); ANION GAP 6 mmol/L (5-15); CALCIUM 7.8 mg/dL (8.5-10.1); CHLORIDE 109 mmol/L (98-107); CREATININE 1.42 mg/dL (0.7-1.3)
[2018-12-03 02:46] LABS: ALKALINE PHOSPHATASE 95 U/L (45-117); BILIRUBIN,TOTAL 0.3 mg/dL (0.2-1.0); TOTAL PROTEIN 5.4 g/dL (6.4-8.2)
[2018-12-03] MEDS: HEPARIN 25,000 UNITS/500ML PMX 500 ML IV PRN ×2 (03:06→15:27)
[2018-12-03] MEDS: MORPHINE SULFATE 4 MG/ML, 1ML IVPush PRN ×2 (03:49→21:16)
[2018-12-03 06:30] VITALS: BP 130/76
[2018-12-03] MEDS: PANTOPROZOLE 40MG TABLET PO SCH (09:13)
[2018-12-03 12:32] VITALS: BP 144/76
[2018-12-03] MEDS ORDERED: D5%-0.45% NACL 1,000 ML IV SCH (16:19)
[2018-12-03] MEDS ORDERED: MAGNESIUM SULFATE PMX 2GM/50ML 50 ML IV ONE (17:30)
[2018-12-03 19:47] VITALS: BP 150/76
[2018-12-03] MEDS: SIMVASTATIN 20 MG TABLET PO SCH (21:16)
[2018-12-04 02:13] VITALS: BP 139/79
[2018-12-04] MEDS: HEPARIN 25,000 UNITS/500ML PMX 500 ML IV PRN ×2 (04:22→19:37)
[2018-12-04 05:49] LABS: ALBUMIN 2.5 g/dL (3.4-5.0); ANION GAP 8 mmol/L (5-15); CALCIUM 8.1 mg/dL (8.5-10.1); CHLORIDE 106 mmol/L (98-107)
[2018-12-04 05:52] LABS: ALANINE AMINOTRANSFERASE 19 U/L (12-78); ALKALINE PHOSPHATASE 97 U/L (45-117); BILIRUBIN,TOTAL 0.4 mg/dL (0.2-1.0); CREATININE 1.28 mg/dL (0.7-1.3); TOTAL PROTEIN 5.4 g/dL (6.4-8.2)
[2018-12-04 06:54] VITALS: BP 146/76
[2018-12-04] MEDS: PANTOPROZOLE 40MG TABLET PO SCH (09:02)
[2018-12-04] MEDS: POLYETHYLENE GLYCOL 17 GM PACKET PO SCH ×2 (14:00→21:10)
[2018-12-04 14:53] VITALS: BP 176/16
[2018-12-04] MEDS: D5%-0.45% NACL 1,000 ML IV SCH (19:33)
[2018-12-04] MEDS: SIMVASTATIN 20 MG TABLET PO SCH (21:10)
[2018-12-04 21:15] VITALS: BP 165/88
[2018-12-04] MEDS: MORPHINE SULFATE 4 MG/ML, 1ML IVPush PRN (23:16)
[2018-12-05 02:06] VITALS: BP 149/80
[2018-12-05] MEDS: D5%-0.45% NACL 1,000 ML IV SCH ×2 (05:02→16:19)
[2018-12-05] MEDS: POLYETHYLENE GLYCOL 17 GM PACKET PO SCH ×2 (07:46→20:21)
[2018-12-05] MEDS: PANTOPROZOLE 40MG TABLET PO SCH (07:46)
[2018-12-05 07:50] VITALS: BP 166/84
[2018-12-05] MEDS: HEPARIN 25,000 UNITS/500ML PMX 500 ML IV PRN (12:29)
[2018-12-05 13:10] VITALS: BP 135/80
[2018-12-05 18:29] VITALS: BP 169/89
[2018-12-05] MEDS: SIMVASTATIN 20 MG TABLET PO SCH (20:21)
[2018-12-06] MEDS: D5%-0.45% NACL 1,000 ML IV SCH ×2 (00:19→08:19)
[2018-12-06] MEDS: HEPARIN 25,000 UNITS/500ML PMX 500 ML IV PRN (01:27)
[2018-12-06 02:30] VITALS: BP 134/61
[2018-12-06 07:00] VITALS: BP 153/89
[2018-12-06] MEDS: PANTOPROZOLE 40MG TABLET PO SCH (08:29)
[2018-12-06] MEDS: POLYETHYLENE GLYCOL 17 GM PACKET PO SCH (08:29)
[2018-12-06 10:06] VITALS: BP 135/79
== END 2018-12-06 11:20 | disposition home or self-care (01) | DRG 335 ==
LOC: ED 13:47 → EDIP 15:26 → 3NE 15:39 → 4NOR 12-01 11:58 → DCLOUNGE 12-06 11:12
PROVIDERS: ADMIT Internal Medicine; ATTEND Internal Medicine
PROC: 0DN80ZZ Release Small Intestine, Open Approach (ICD-10-PCS; principal; 2018-12-01 10:00)
DX: K56.51 Intestinal adhesions [bands], with partial obstruction (principal); N17.0 Acute kidney failure with tubular necrosis; I13.0 Hypertensive heart and chronic kidney disease with heart failure and stage 1 through stage 4 chronic kidney disease, or unspecified chronic kidney disease; E87.2 Acidosis; D68.59 Other primary thrombophilia; E44.0 Moderate protein-calorie malnutrition; Z88.8 Allergy status to other drugs, medicaments and biological substances; E11.22 Type 2 diabetes mellitus with diabetic chronic kidney disease; E66.01 Morbid (severe) obesity due to excess calories; E78.5 Hyperlipidemia, unspecified; F17.200 Nicotine dependence, unspecified, uncomplicated; F32.9 Major depressive disorder, single episode, unspecified; F41.1 Generalized anxiety disorder; F43.10 Post-traumatic stress disorder, unspecified; G43.909 Migraine, unspecified, not intractable, without status migrainosus; I25.10 Atherosclerotic heart disease of native coronary artery without angina pectoris; I25.2 Old myocardial infarction; I48.91 Unspecified atrial fibrillation; I50.9 Heart failure, unspecified; J44.9 Chronic obstructive pulmonary disease, unspecified; K21.9 Gastro-esophageal reflux disease without esophagitis; K44.9 Diaphragmatic hernia without obstruction or gangrene; K56.7 Ileus, unspecified; N18.3 Chronic kidney disease, stage 3 (moderate); N40.0 Benign prostatic hyperplasia without lower urinary tract symptoms; D72.829 Elevated white blood cell count, unspecified; Z80.1 Family history of malignant neoplasm of trachea, bronchus and lung; Z80.3 Family history of malignant neoplasm of breast; Z81.8 Family history of other mental and behavioral disorders; Z82.0 Family history of epilepsy and other diseases of the nervous system; Z82.49 Family history of ischemic heart disease and other diseases of the circulatory system; Z83.3 Family history of diabetes mellitus; Z86.711 Personal history of pulmonary embolism; Z86.73 Personal history of transient ischemic attack (TIA), and cerebral infarction without residual deficits; Z95.0 Presence of cardiac pacemaker; Z79.01 Long term (current) use of anticoagulants; Z68.33 Body mass index [BMI] 33.0-33.9, adult
CPT/HCPCS: 36415; 71045; 74021; 74022; 74177; 74250; 80053; 81003; 82010; 83605; 83690; 83735; 83880; 84100; 84439; 84443; 84484; 85025; 85520; 87324; 93005; 96374; G0378; J1100; J1644; J2250; J2405; J2704; J2710; J3010; J3490; Q9967; C1765; J0330; J0360; J2270; J3475